=== PATIENT | female | born 1945 | race Caucasian/White ===

== ENCOUNTER → 2018-03-22 | Outpatient (CLI) | END | disposition home or self-care (01) ==

== ENCOUNTER → 2018-05-17 | Outpatient (CLI) | END | disposition home or self-care (01) ==

== ENCOUNTER → 2018-06-22 | Outpatient (CLI) | END | disposition home or self-care (01) ==

== ENCOUNTER 2019-05-31 07:30 | Inpatient (IN) | payer MEDICARE, BC ==
[2019-05-21 18:07] VITALS: BMI 23.6
[2019-05-31] VITALS (30 sets, daily range): BP systolic 93–139; BP diastolic 44–66; PULSE 68–90; RESP 15–30; Ht 160 cm; Wt 61.2 kg
[~2019-05-31] VITALS: Ht 160 cm; Wt 61.2 kg
[~2019-05-31 07:30] MED LIST: ACETAMINOPHEN 1000MG/100ML IV 100 ML IVPB ONE; CLINDAMYCIN 600 MG/D5W (PMX) 50 ML IVPB SCH; DEXAMETHASONE 4 MG/ML 1 ML INJ IV ONE; LACTATED RINGER'S 1,000 ML IV ONE; TRANEXAMIC ACID 1GM/100ML(PMX) 100 ML AT CLOSURE X1 IVPB ONE; TRANEXAMIC ACID 1GM/100ML(PMX) 100 ML AT INCISION X1 IVPB ONE
[2019-05-31] MEDS ORDERED: METF500T24 PO (09:25)
[2019-05-31] MEDS ORDERED: TELM1TAB PO (09:26)
[2019-05-31] MEDS ORDERED: CALC1TAB79 PO (09:28)
[2019-05-31] MEDS ORDERED: CRAN450T7 PO (09:28)
[2019-05-31] MEDS ORDERED: OMEG-135 PO (09:29)
[2019-05-31] MEDS ORDERED: [UNRECOGNIZED DRUG - CODE] PO (09:29)
[2019-05-31] MEDS ORDERED: B CO1TAB14 PO (09:30)
[2019-05-31] MEDS ORDERED: UBID100C24 PO (09:30)
[2019-05-31] MEDS ORDERED: TURM500C9 PO (09:31)
--- NOTE | 2019-05-31 09:43 | HPN ---
Date/Time of Note Date/Time of Note DATE: 05/31/19 TIME: 09:42 Interval H&P Admission Note Pt. seen H&P reviewed: No system changes LALIT LINDSEY May 31, 2019 09:43
--- NOTE | 2019-05-31 09:46 | PREAC ---
Date/Time of Note Date/Time of Note DATE: 05/31/19 TIME: 09:44 Anesthesia Eval and Record Evaluation Time Pre-Procedure Interview DATE: 05/31/19 TIME: 09:44 Age 73 Sex female NPO: 8 hrs Preoperative diagnosis Bilateral Knees OA Planned procedure Bilateral Total Knees Arthroplasties Past Medical History Past Medical History: Includes Cardio: HTN Endo: Diabetes, Other (ovarian cyst) Musculoskeletal: Osteoarthritis Infection(s): Hep C Surgery & Anesthesia Issues No known issue Meds Anticoagulation: No Beta Forrest within 24 hr: No Reason Beta Forrest not given: Pt. not on B-Forrest Reported Medications Turmeric Root Extract (Turmeric) 500 Mg Capsule, 1000 MG PO DAILY, CAP 05/31/19 B Complex with Vitamin C (Super B Complex-Vitamin C) 1 Each Tablet, 1 EACH PO DAILY, TAB 05/31/19 Ubidecarenone (Coq-10) 100 Mg Capsule, 100 MG PO DAILY, CAP 05/31/19 Lovely-3 Fatty Acids/Fish Oil (Fish Oil 1,000 mg Capsule) 1 Each Capsule, 1 EACH PO DAILY, CAP 05/31/19 Multivits Min/Iron/Fa/Herb#186 (HAIR, SKIN & NAILS CAPLET) 1 Each Tablet, 1 EACH PO BID, TAB 05/31/19 Calcium Carbonate/Vitamin D3 ([place] 500+D Tablet) 1 Each Tablet, 1 EACH PO BID, TAB 05/31/19 Cranberry Fruit (CRANBERRY) 450 Mg Tablet, 650 MG PO DAILY, TAB 05/31/19 Telmisartan-Amlodipine (Telmisartan-Amlodipine) 40-5 Mg Tablet, 1 TAB PO DAILY, TAB 05/31/19 Metformin Hcl* (Metformin Hcl*) 500 Mg Tablet, 500 MG PO WITH BREAKFAST DINNE, #60 TAB 05/31/19 Current Medications Lactated Ringer's 1,000 ml @ 125 mls/hr Q8H ONCE IV ; Start 05/31/19 at 07:30; Stop 05/31/19 at 15:29 Clindamycin HCl/ Dextrose 50 ml @ 100 mls/hr PRE-OP IVPB ; Start 05/31/19 at 06:00; Stop 05/31/19 at 12:00 Meds reviewed: Yes Allergies Coded Allergies: Penicillins (Verified Allergy, Severe, ANAPHYLACTIC SHOCK, 05/21/19) Sulfa (Sulfonamide Antibiotics) (Verified Allergy, Severe, HIVES, 05/21/19) belladonna alkaloids (Verified Allergy, Severe, 05/31/19) sulfamethoxazole (Verified Allergy, Severe, HIVES, 05/21/19) tetracycline (Verified Allergy, Severe, REDNESS ALL OVER, 05/21/19) trimethoprim (Verified Allergy, Severe, HIVES, 05/21/19) ampicillin (Verified Allergy, Unknown, 05/31/19) dextromethorphan (Verified Allergy, Unknown, 05/31/19) guaifenesin (Verified Allergy, Unknown, 05/31/19) moxifloxacin (Verified Allergy, Unknown, 05/31/19) Allergies Reviewed: Yes Labs/Studies Labs Reviewed: Reviewed by anesthesiologist test: N/A Studies: ECG (n/a), CXR (n/a) Pre-procedure Exam Last vitals Vital Signs Date Temp Pulse Resp B/P (MAP) Pulse Ox O2 O2 Flow FiO2 Time Delivery Rate 05/31/19 98.2 79 16 139/66 98 Room Air 09:36 (90) Airway: Adequate mouth opening, Adequate thyromental dist Mallampati: Mallampati II Teeth: Normal Lung: Normal Heart: Normal ASA Physical Status ASA physical status: 3 Emergency: None Planned Anesthetic General/MAC: ETT, LMA Neuraxial: Spinal Nerve block: Femoral (bilateral) Planned Pain Management Sub-arachniod narcotics, Single shot nerve block, Parenteral pain med Pre-operative Attestations Prior to commencing anesthesia and surgery, the patient was re-evaluated, there was verification of: *The patient's identity *The results of appropriate recent lab work and preoperative vital signs *The above evaluation not changing prior to induction *Anesthetic plan, risk benefits, alternative and complications discussed with patient/family; questions answered; patient/family understands, accepts and wishes to proceed. ROCKY FINCH MD May 31, 2019 09:46
--- NOTE | 2019-05-31 10:23 | PAC ---
Date/Time of Note Date/Time of Note DATE: 05/31/19 TIME: 10:23 Post-Anesthesia Notes Post-Anesthesia Note Last documented vital signs Vital Signs Date Temp Pulse Resp B/P (MAP) Pulse Ox O2 O2 Flow FiO2 Time Delivery Rate 05/31/19 98.2 79 16 139/66 98 Room Air 10:26 (90) Activity: WNL Respiratory function: WNL Cardiovascular function: WNL Mental status: Baseline Pain reasonably controlled: Yes Hydration appropriate: Yes Nausea/Vomiting absent: Yes ROCKY FINCH MD May 31, 2019 10:23
[2019-05-31] MEDS ORDERED: PROPOFOL 100 ML ONE (11:49)
[2019-05-31] MEDS ORDERED: FENTAnyl 50 MCG/ML VIAL ONE (11:49)
[2019-05-31] MEDS ORDERED: ROPIVACAINE 0.5 % 30 ML VIAL ONE (11:49)
[2019-05-31] MEDS ORDERED: MIDAZOLAM 1 MG/ML 2 ML INJ ONE (11:49)
[2019-05-31] MEDS ORDERED: HETASTARCH 6% NACL 500 ML ONE (13:10)
[2019-05-31] MEDS ORDERED: KETOROLAC 30 MG INJ ONE (13:22)
[2019-05-31] MEDS ORDERED: ONDANSETRON 4 MG INJ ONE (13:22)
[2019-05-31] MEDS ORDERED: DEXAMETHASONE 4 MG/ML 5 ML INJ ONE (13:22)
[2019-05-31] MEDS ORDERED: METOCLOPRAMIDE 10 MG INJ ONE (13:22)
[2019-05-31] MEDS ORDERED: POLYMYXIN B 500000 UNIT INJ IRR ONE (13:27)
[2019-05-31] MEDS ORDERED: BACITRACIN 50000 UNITS INJ IRR ONE (13:27)
[2019-05-31] MEDS ORDERED: morphine 2 MG INJ IV PRN ×2 (14:00)
[2019-05-31] MEDS ORDERED: NALOXONE (0.4 MG/ML) INJ IV PRN ×2 (14:00→15:30)
[2019-05-31] MEDS ORDERED: HYDROCODONE/APAP (5/325) TAB PO PRN (14:00)
[2019-05-31] MEDS ORDERED: HYDROmorphONE 0.5 MG/0.5 ML SYG IV PRN ×2 (14:00)
[2019-05-31] MEDS ORDERED: MEPERIDINE 25 MG INJ IV PRN (14:00)
[2019-05-31] MEDS ORDERED: LABETALOL HCL 20MG INJ IV PRN (14:00)
[2019-05-31] MEDS ORDERED: ACETAMINOPHEN 500 MG TAB PO PRN (14:00)
[2019-05-31] MEDS ORDERED: ONDANSETRON 4 MG INJ IV PRN ×2 (14:00)
[2019-05-31] MEDS ORDERED: HYDROmorphONE 1 MG/5 ML IV SYRINGE IV PRN ×3 (14:00)
[2019-05-31] MEDS ORDERED: FENTAnyl 50 MCG/ML VIAL IV PRN ×3 (14:00)
[2019-05-31] MEDS ORDERED: DIPHENHYDRAMINE 50 MG INJ IV PRN ×2 (14:00)
[2019-05-31] MEDS ORDERED: OXYCODONE/ACETAMINOPHEN (5/325) TAB PO PRN (14:00)
[2019-05-31] MEDS ORDERED: METOCLOPRAMIDE 10 MG INJ IV PRN (14:00)
[2019-05-31] MEDS ORDERED: KETOROLAC 15 MG INJ IV PRN ×2 (14:00→15:30)
[2019-05-31] MEDS ORDERED: EPHEDrine 25 MG/5 ML SYG IV PRN (14:00)
[2019-05-31] MEDS ORDERED: NALBUPHINE HCL (10 MG/1 ML) INJ IV PRN (14:00)
[2019-05-31] MEDS ORDERED: hydrALAzine 20 MG INJ IV PRN (14:00)
[2019-05-31] MEDS ORDERED: TRANEXAMIC ACID 1 GM/100 ML ONE (14:02)
[2019-05-31] MEDS ORDERED: POLYMYXIN B 500000 UNIT INJ ONE (14:53)
[2019-05-31] MEDS ORDERED: BACITRACIN 50000 UNITS INJ ONE (14:54)
--- NOTE | 2019-05-31 15:01 | SIPON ---
Date/Time of Note Date/Time of Note DATE: 05/31/19 TIME: 15:00 Operative Report Preoperative Diagnosis Bilateral knee osteoarthritis Postoperative Diagnosis Same Operation/Procedure Performed Bilateral total knee replacement Surgeon see signature line web press operator assistant MARTELL Lagunas Anesthesia: spinal Estimated blood loss: 250 - 300 ml's Transfusion Required none Specimen Bone Grafts/Implants Right knee, size 5 femur, size 3 tibia, 6 mm polyethylene and 32 patella. Left side, size 4 femur, size 3 tibia and 6 mm polyethylene, 32 patella Complications none LALIT LINDSEY May 31, 2019 15:01
[2019-05-31] MEDS ORDERED: EPHEDrine 25 MG/5 ML SYG ONE (15:04)
[2019-05-31] MEDS ORDERED: PHENYLephrine (100 MCG/ML) 10ML SYG ONE (15:04)
[2019-05-31] MEDS: LACTATED RINGER'S 1,000 ML IV SCH (15:05)
--- NOTE | 2019-05-31 15:05 | OPR ---
Date/Time of Note Date/Time of Note DATE: 05/31/19 TIME: 15:01 Operative Report Procedure Date: May 31, 2019 Preoperative Diagnosis Bilateral knee osteoarthritis Postoperative Diagnosis Same Operation/Procedure Performed Bilateral total knee replacement Surgeon see signature line Dry Cell Sealer MARTELL Lagunas Anesthesia Type: spinal Estimated Blood Loss: 250 - 300 ml's Transfusion none Specimen Bone Grafts/Implants Anay knees, size 5 femur, size 3 tibia, 6 mm polyethylene and 32 patella on the right. Size 4 femur, size 3 tibia, 6 mm polyethylene and 32 patella on the left Tubes/Drains None Complications none Pt Condition Post Procedure: stable Disposition: PACU Indications The patient is a 73-year-old female with bilateral osteoarthritis of her knees Procedure Description Patient was placed supine on the operating room table. Both knees were prepped and draped in usual manner, preoperative antibiotics were administered. The right knee was addressed first. There was a valgus deformity. An anterior incision was made. A mid vastus approach was used. The patella was displaced laterally without everting it. Medial and lateral collateral ligaments were protected. The distal femoral cut was made in 5 degrees of valgus. The tibia was prepared using external alignment. The femoral cuts were made for a posterior stabilized femoral component. A notch was cut in the distal femur to accommodate the component. PCL was sacrificed, remnants of the menisci were removed. Anterior posterior and chamfer cuts were made. Trials were inserted including a 5 femur, 3 tibia, 32 patella and 6 mm of polyethylene. This resulted in a stable knee from 0 to 130 degrees. Final components were cemented in place and the knee injected with pain cocktail. The knee had full range of motion with good balance and tracking. The wound was closed in layers using #1 strata fix for deep fascia, 2-0 Vicryl for subcutaneous tissue and 3-0 Monocryl for the skin. The knee was injected with pain cocktail. The left knee was then addressed. Once again valgus deformity was recognized. An anterior incision was used. A mid vastus approach was made in the patella displaced laterally without everting it. The femur was prepared for a size 4 component and the tibia for a size 3 component. 6 mm of polyethylene resulted in full range of motion with good stability and balance. Final x-rays were satisfactory. Final components were cemented in place. Excess cement was removed. The knee was injected with pain cocktail and closed in layers using #1 strata fix for deep fascia, 2-0 Vicryl for subcutaneous tissue and 3-0 Monocryl for the skin. Patient was transferred to the recovery room in stable condition LALIT LINDSEY May 31, 2019 15:05
[2019-05-31] MEDS ORDERED: PROPOFOL 20 ML ONE (15:10)
[2019-05-31] MEDS ORDERED: MAGNESIUM HYDROXIDE 30ML CUP PO PRN (15:30)
[2019-05-31] MEDS ORDERED: NACL 0.9% 3 ML SYG IV SCH (15:30)
[2019-05-31] MEDS ORDERED: oxyCODONE 5 MG TAB PO PRN ×2 (15:30)
[2019-05-31] MEDS: CLINDAMYCIN 900 MG/D5W (PMX) 50 ML IVPB SCH ×2 (15:30→23:33)
[2019-05-31] MEDS ORDERED: GLUCOSE GEL 15 GRAM TUBE PO PRN ×2 (19:00)
[2019-05-31] MEDS ORDERED: GLUCAGON 1 MG INJ IM PRN (19:00)
[2019-05-31] MEDS ORDERED: GLUCOSE GEL 15 GRAM TUBE BUCCAL PRN (19:00)
[2019-05-31] MEDS ORDERED: DEXTROSE 50% 50 ML SYRINGE IV PRN ×2 (19:00)
[2019-05-31] MEDS: INSULIN ASPART [NOVOLOG] 3 ML PEN SC SCH (20:49)
[2019-05-31] MEDS ORDERED: GABAPENTIN 100 MG CAP PO SCH (21:00)
--- NOTE | 2019-05-31 21:10 | HP ---
Date/Time of Note Date/Time of Note DATE: 05/31/19 TIME: 20:58 Assessment/Plan VTE Prophylaxis Risk score (from Ns)>0 risk: 7 SCD applied (from [facility] [place]): Yes Pharmacological prophylaxis: NA/contraindicated Pharm contraindication: surgical contra Lines/Catheters IV Catheter Type (from Nrsg): Peripheral IV Urinary Cath still in place: Yes Reason Cath still needed: urinary retention Assessment/Plan Assessment/Plan -Bilateral knee osteoarthritis. S/p Bilateral total knee replacement. Continue IV fluids and postoperative antibiotic. Continue management, physical therapy follow-up orthopedic surgery recommendations. Patient has multiple allergies does not want to take any [place], morphine, or gabapentin for pain. Continue Tylenol and ibuprofen as needed for pain. Patient wants to take her homeopathic medication for pain and inflammation. -Hypertension, continue Norvasc and telmisartan. -Diabetes, continue metformin. Further recommendations based on clinical course. Plan of care discussed with Dr. Gupta. Results 24hrs Laboratory Tests Test 05/31/19 10:13 05/31/19 15:40 05/31/19 20:48 Bedside Glucose 119 162 187 HPI/ROS Admit Date/Time Admit Date/Time May 31, 2019 at 08:12 Hx of Present Illness The patient is 73-year-old female with hypertension, diabetes, arthritis. Patient failed conservative management for bilateral knee osteoarthritis and was evaluated by Dr. Muniz and orthopedic surgery consultation. Patient was brought to the hospital and underwent bilateral knee replacement. Patient is noted to be slightly hypotensive, howeve,r denies any chest pain denies shortness of breath, denies any nausea and vomiting. Patient is being admitted for further evaluation and management to medical surgical floor. ROS 12 point review of system is negative except for what mentioned in HPI PMH/Family/Social Past Medical History Medical History: diabetes, hypertension, other (Osteoarthritis) Medications Current Medications Hydromorphone HCl (Dilaudid) 0.2 mg Q2H PRN IV .PAIN 1-5; Start 05/31/19 at 14:00; Stop 06/01/19 at 14:07 Hydromorphone HCl (Dilaudid) 0.4 mg Q2H PRN IV .PAIN 6-10; Start 05/31/19 at 14:00; Stop 06/01/19 at 14:07 Morphine Sulfate (morphine) 2 mg Q2H PRN IV .PAIN 1-5; Start 05/31/19 at 14:00; Stop 06/01/19 at 14:07 Morphine Sulfate (morphine) 4 mg Q2H PRN IV .PAIN 6-10; Start 05/31/19 at 14:00; Stop 06/01/19 at 14:07 Ketorolac Tromethamine (Toradol) 15 mg Q6H PRN IV .PAIN 6-10; Start 05/31/19 at 14:00; Stop 06/01/19 at 14:07 Acetaminophen (Tylenol Tab) 500 mg Q4H PRN PO .PAIN 1-3; Start 05/31/19 at 14:00; Stop 06/01/19 at 14:07 Acetaminophen/ Hydrocodone Bitart ([place] (5/325)) 1 tab Q4H PRN PO .PAIN 4-6; Start 05/31/19 at 14:00; Stop 06/01/19 at 14:07 Diphenhydramine HCl (Benadryl) 25 mg Q4H PRN IV .PRURITUS; Start 05/31/19 at 14:00; Stop 06/01/19 at 14:07 Nalbuphine HCl (Nubain) 10 mg Q4H PRN IV .PRURITUS; Start 05/31/19 at 14:00; Stop 06/01/19 at 14:07 Ondansetron HCl (Zofran Inj) 4 mg Q6H PRN IV .NAUSEA/VOMITING; Start 05/31/19 at 14:00; Stop 06/01/19 at 14:07 Naloxone HCl (Narcan) 0.2 mg Q2M PRN IV .RESP RATE; Start 05/31/19 at 14:00; Stop 06/01/19 at 14:07 Miscellaneous Information (* Miscellaneous Pharmacy Order) FENTANYL: 20 ... GIVE N NEURAXIAL XX ; Start 05/31/19 at 14:00 Metoclopramide HCl (Reglan) 10 mg PACU ORDER PRN IV NAUSEA/VOMITING; Start 05/31/19 at 14:00 Lactated Ringer's 1,000 ml @ 80 mls/hr [id number] IV ; Start 05/31/19 at 15:05 IV Flush (NS 3 ml) 3 ml PER PROTOCOL IV ; Start 05/31/19 at 15:30 Oxycodone HCl (Roxicodone) 10 mg Q4H PRN PO .PAIN; Start 05/31/19 at 15:30 Oxycodone HCl (Roxicodone) 5 mg Q4H PRN PO .PAIN; Start 05/31/19 at 15:30 Acetaminophen (Tylenol Tab) 1,000 mg Q8 PO ; Start 05/31/19 at 22:00 Ketorolac Tromethamine (Toradol) 15 mg Q6H PRN IV .PAIN; Start 05/31/19 at 15:30 Ondansetron HCl (Zofran Inj) 4 mg Q4H PRN IV NAUSEA/VOMITING; Start 06/01/19 at 15:30 Clindamycin HCl/ Dextrose 50 ml @ 50 mls/hr Q8H IVPB ; Start 05/31/19 at 15:30; Stop 06/01/19 at 08:29 Gabapentin (Neurontin) 100 mg TID PO ; Start 05/31/19 at 21:00 Pantoprazole (Protonix Tab) 40 mg DAILY@06 PO ; Start 06/02/19 at 06:00 Docusate Sodium (Colace) 200 mg BID PO ; Start 06/01/19 at 09:00; Stop 06/04/19 at 08:59 Magnesium Hydroxide (Milk Of Mag) 30 ml HS PRN PO .CONSTIPATION; Start 05/31/19 at 15:30 Naloxone HCl (Narcan) 0.2 mg Q2M PRN IV .RESP RATE; Start 05/31/19 at 15:30 Aspirin (Halfprin) 81 mg BID PO ; Start 06/01/19 at 09:00 Insulin Aspart (Novolog Insulin Pen) NOVOLOG *MILD* ALGORITHM WITH MEALS BEDTIME SC ; Start 05/31/19 at 21:00 Miscellaneous Information 1 ea NOTE XX ; Start 05/31/19 at 19:00 Glucose (Glutose) 15 gm Q15M PRN PO DECREASED GLUCOSE; Start 05/31/19 at 19:00 Glucose (Glutose) 22.5 gm Q15M PRN PO DECREASED GLUCOSE; Start 05/31/19 at 19:00 Dextrose (D50w Syringe) 25 ml Q15M PRN IV DECREASED GLUCOSE; Start 05/31/19 at 19:00 Dextrose (D50w Syringe) 50 ml Q15M PRN IV DECREASED GLUCOSE; Start 05/31/19 at 19:00 Glucagon (Glucagen) 1 mg Q15M PRN IM DECREASED GLUCOSE; Start 05/31/19 at 19:00 Glucose (Glutose) 15 gm Q15M PRN BUCCAL DECREASED GLUCOSE; Start 05/31/19 at 19:00 Coded Allergies: Penicillins (Verified Allergy, Severe, ANAPHYLACTIC SHOCK, 05/21/19) Sulfa (Sulfonamide Antibiotics) (Verified Allergy, Severe, HIVES, 05/21/19) belladonna alkaloids (Verified Allergy, Severe, 05/31/19) sulfamethoxazole (Verified Allergy, Severe, HIVES, 05/21/19) tetracycline (Verified Allergy, Severe, REDNESS ALL OVER, 05/21/19) trimethoprim (Verified Allergy, Severe, HIVES, 05/21/19) ampicillin (Verified Allergy, Unknown, 05/31/19) dextromethorphan (Verified Allergy, Unknown, 05/31/19) guaifenesin (Verified Allergy, Unknown, 05/31/19) moxifloxacin (Verified Allergy, Unknown, 05/31/19) Past Surgical History Past Surgical Hx: other (Status post ORIF of right humerus for fracture, status post rotator cuff repair, status post ovarian cyst removal many years ago, status post tonsillectomy many years ago) Family History Significant Family History: no pertinent family hx Social History Alcohol Use: occasionally Smoking Status: Never smoker Drug Use: none Exam/Review of Systems Vital Signs Vitals Vital Signs Date Temp Pulse Resp B/P (MAP) Pulse Ox O2 O2 Flow FiO2 Time Delivery Rate 05/31/19 97.7 84 20 103/57 94 Room Air 19:10 (72) Exam Constitutional: alert, oriented Head: normocephalic Neck: supple Respiratory: clear to auscultation Cardiovascular: nl pulses Gastrointestinal: soft, non-tender Musculoskeletal: nl extremities to inspection Extremities: other (Status post bilateral knee replacement) Neurological: nl mental status Skin: nl WILEY Alvardao May 31, 2019 21:09
[2019-05-31] MEDS: ACETAMINOPHEN 500 MG TAB PO SCH ×2 (21:21→22:25)
[2019-06-01] MEDS: LACTATED RINGER'S 1,000 ML IV SCH ×2 (01:25→16:05)
[2019-06-01 04:00] VITALS: BP 97/49; PULSE 51; RESP 20
[2019-06-01] MEDS: CLINDAMYCIN 900 MG/D5W (PMX) 50 ML IVPB SCH (06:47)
[2019-06-01] MEDS: INSULIN ASPART [NOVOLOG] 3 ML PEN SC SCH ×4 (07:50→21:00)
--- NOTE | 2019-06-01 08:03 | PN ---
Date/Time of Note Date/Time of Note DATE: 06/01/19 TIME: 08:02 Assessment/Plan VTE Prophylaxis Risk score (from Ns)>0 risk: 7 SCD applied (from Ns): Yes SCD contraindicated: other Pharmacological prophylaxis: other Pharm contraindication: other Lines/Catheters IV Catheter Type (from Nrsg): Peripheral IV Urinary Cath still in place: Yes Reason Cath still needed: urinary retention Assessment/Plan Assessment/Plan -Bilateral knee osteoarthritis. S/p Bilateral total knee replacement. Continue IV fluids and postoperative antibiotic. Continue management, physical therapy follow-up orthopedic surgery recommendations. Patient has multiple allergies does not want to take any [place], morphine, or gabapentin for pain. Continue Tylenol and ibuprofen as needed for pain. Patient wants to take her homeopathic medication for pain and inflammation. -Hypertension, continue Norvasc and telmisartan. -Diabetes, continue metformin. Further recommendations based on clinical course. Plan of care discussed with Dr. Gupta. Result Diagram: 06/01/19 0456 06/01/19 0456 Results 24hrs Laboratory Tests Test 05/31/19 10:13 05/31/19 15:40 05/31/19 20:48 06/01/19 04:56 Bedside Glucose 119 162 187 White Blood Count 11.8 H Red Blood Count 3.28 L Hemoglobin 9.4 L Hematocrit 28.8 L Mean Corpuscular 87.8 Volume Mean Corpuscular 28.7 L Hemoglobin Mean Corpuscular 32.6 Hemoglobin Concent Red Cell 14.9 H Distribution Width Platelet Count 208 Mean Platelet Volume 11.5 H Immature 0.500 H Granulocytes % Neutrophils % 87.6 H Lymphocytes % 7.0 L Monocytes % 4.8 Eosinophils % 0.0 Basophils % 0.1 Nucleated Red Blood 0.0 Cells % Immature 0.060 H Granulocytes # Neutrophils # 10.3 H Lymphocytes # 0.8 Monocytes # 0.6 Eosinophils # 0.0 Basophils # 0.0 Nucleated Red Blood 0.0 Cells # Sodium Level 140 Potassium Level 5.0 Chloride Level 110 Carbon Dioxide Level 26 Anion Gap 4 L Blood Urea Nitrogen 19 Creatinine 0.84 Est Glomerular Filtrat Rate mL/min Glucose Level 160 Calcium Level 8.7 Subjective 24 Hr Interval Summary Free Text/Dictation no new events last night Eyes: no complaints ENT: no complaints Respiratory: no complaints Cardiovascular: no complaints Gastrointestinal: no complaints Genitourinary: no complaints Musculoskeletal: bone/joint pain, restricted range of motion Skin: no complaints Neurologic: no complaints Endocrine: no complaints Lymphatic: no complaints Psychological: nl mood/affect Immunologic: no complaints Exam/Review of Systems Exam Vitals Vital Signs Date Temp Pulse Resp B/P (MAP) Pulse Ox O2 O2 Flow FiO2 Time Delivery Rate 06/01/19 98.1 51 20 97/49 (65) 96 04:00 05/31/19 Room Air 2.0 23:36 Intake and Output 05/31/19 05/31/19 06/01/19 1515:00 23:00 07:00 IntakeIntake Total 3700 ml 240 ml 1590 ml OutputOutput Total 3000 ml 600 ml BalanceBalance 3700 ml -2760 ml 990 ml Constitutional: alert, oriented, well developed Psych: nl mood/affect Head: normocephalic Eyes: nl lids, nl sclera ENMT: nl external ears & nose Neck: non-tender Respiratory: clear to auscultation Cardiovascular: nl pulses, other (s1s2) Gastrointestinal: soft, non-tender Musculoskeletal: joint tenderness, range of motion Extremities: normal pulses Neurological: nl mental status, nl speech Skin: nl turgor Lymph: nontender Results Results 24hrs Laboratory Tests Test 05/31/19 10:13 05/31/19 15:40 05/31/19 20:48 06/01/19 04:56 Bedside Glucose 119 162 187 White Blood Count 11.8 H Red Blood Count 3.28 L Hemoglobin 9.4 L Hematocrit 28.8 L Mean Corpuscular 87.8 Volume Mean Corpuscular 28.7 L Hemoglobin Mean Corpuscular 32.6 Hemoglobin Concent Red Cell 14.9 H Distribution Width Platelet Count 208 Mean Platelet Volume 11.5 H Immature 0.500 H Granulocytes % Neutrophils % 87.6 H Lymphocytes % 7.0 L Monocytes % 4.8 Eosinophils % 0.0 Basophils % 0.1 Nucleated Red Blood 0.0 Cells % Immature 0.060 H Granulocytes # Neutrophils # 10.3 H Lymphocytes # 0.8 Monocytes # 0.6 Eosinophils # 0.0 Basophils # 0.0 Nucleated Red Blood 0.0 Cells # Sodium Level 140 Potassium Level 5.0 Chloride Level 110 Carbon Dioxide Level 26 Anion Gap 4 L Blood Urea Nitrogen 19 Creatinine 0.84 Est Glomerular Filtrat Rate mL/min Glucose Level 160 Calcium Level 8.7 Medications Medication Current Medications Hydromorphone HCl (Dilaudid) 0.2 mg Q2H PRN IV .PAIN 1-5; Start 05/31/19 at 14:00; Stop 06/01/19 at 14:07 Hydromorphone HCl (Dilaudid) 0.4 mg Q2H PRN IV .PAIN 6-10; Start 05/31/19 at 14:00; Stop 06/01/19 at 14:07 Morphine Sulfate (morphine) 2 mg Q2H PRN IV .PAIN 1-5; Start 05/31/19 at 14:00; Stop 06/01/19 at 14:07 Morphine Sulfate (morphine) 4 mg Q2H PRN IV .PAIN 6-10; Start 05/31/19 at 14:00; Stop 06/01/19 at 14:07 Ketorolac Tromethamine (Toradol) 15 mg Q6H PRN IV .PAIN 6-10; Start 05/31/19 at 14:00; Stop 06/01/19 at 14:07 Acetaminophen (Tylenol Tab) 500 mg Q4H PRN PO .PAIN 1-3; Start 05/31/19 at 14:00; Stop 06/01/19 at 14:07 Acetaminophen/ Hydrocodone Bitart ([place] (5/325)) 1 tab Q4H PRN PO .PAIN 4-6; Start 05/31/19 at 14:00; Stop 06/01/19 at 14:07 Diphenhydramine HCl (Benadryl) 25 mg Q4H PRN IV .PRURITUS; Start 05/31/19 at 14:00; Stop 06/01/19 at 14:07 Nalbuphine HCl (Nubain) 10 mg Q4H PRN IV .PRURITUS; Start 05/31/19 at 14:00; Stop 06/01/19 at 14:07 Ondansetron HCl (Zofran Inj) 4 mg Q6H PRN IV .NAUSEA/VOMITING; Start 05/31/19 at 14:00; Stop 06/01/19 at 14:07 Naloxone HCl (Narcan) 0.2 mg Q2M PRN IV .RESP RATE; Start 05/31/19 at 14:00; Stop 06/01/19 at 14:07 Miscellaneous Information (* Miscellaneous Pharmacy Order) FENTANYL: 20 ... GIVEN NEURAXIAL XX ; Start 05/31/19 at 14:00 Metoclopramide HCl (Reglan) 10 mg PACU ORDER PRN IV NAUSEA/VOMITING; Start 05/31/19 at 14:00 Lactated Ringer's 1,000 ml @ 80 mls/hr [id number] IV Last administered on 06/01/19at 01:25; Admin Dose 80 MLS/HR; Start 05/31/19 at 15:05 IV Flush (NS 3 ml) 3 ml PER PROTOCOL IV ; Start 05/31/19 at 15:30 Oxycodone HCl (Roxicodone) 10 mg Q4H PRN PO .PAIN; Start 05/31/19 at 15:30 Oxycodone HCl (Roxicodone) 5 mg Q4H PRN PO .PAIN; Start 05/31/19 at 15:30 Acetaminophen (Tylenol Tab) 1,000 mg Q8 PO Last administered on 05/31/19at 22:25; Admin Dose 1,000 MG; Start 05/31/19 at 22:00 Ketorolac Tromethamine (Toradol) 15 mg Q6H PRN IV .PAIN; Start 05/31/19 at 15:30 Ondansetron HCl (Zofran Inj) 4 mg Q4H PRN IV NAUSEA/VOMITING; Start 06/01/19 at 15:30 Clindamycin HCl/ Dextrose 50 ml @ 50 mls/hr Q8H IVPB Last administered on 06/01/19at 06:47; Admin Dose 50 MLS/HR; Start 05/31/19 at 15:30; Stop 06/01/19 at 08:29 Pantoprazole (Protonix Tab) 40 mg DAILY@06 PO ; Start 06/02/19 at 06:00 Docusate Sodium (Colace) 200 mg BID PO ; Start 06/01/19 at 09:00; Stop 06/04/19 at 08:59 Magnesium Hydroxide (Milk Of Mag) 30 ml HS PRN PO .CONSTIPATION; Start 05/31/19 at 15:30 Naloxone HCl (Narcan) 0.2 mg Q2M PRN IV .RESP RATE; Start 05/31/19 at 15:30 Aspirin (Halfprin) 81 mg BID PO ; Start 06/01/19 at 09:00 Insulin Aspart (Novolog Insulin Pen) NOVOLOG *MILD* ALGORITHM WITH MEALS BEDTIME SC ; Start 05/31/19 at 21:00 Miscellaneous Information 1 ea NOTE XX ; Start 05/31/19 at 19:00 Glucose (Glutose) 15 gm Q15M PRN PO DECREASED GLUCOSE; Start 05/31/19 at 19:00 Glucose (Glutose) 22.5 gm Q15M PRN PO DECREASED GLUCOSE; Start 05/31/19 at 19:00 Dextrose (D50w Syringe) 25 ml Q15M PRN IV DECREASED GLUCOSE; Start 05/31/19 at 19:00 Dextrose (D50w Syringe) 50 ml Q15M PRN IV DECREASED GLUCOSE; Start 05/31/19 at 19:00 Glucagon (Glucagen) 1 mg Q15M PRN IM DECREASED GLUCOSE; Start 05/31/19 at 19:00 Glucose (Glutose) 15 gm Q15M PRN BUCCAL DECREASED GLUCOSE; Start 05/31/19 at 19:00 Metformin HCl (Glucophage) 500 mg WITH BREAKFAST DINNE PO ; Start 06/01/19 at 07:50 Miscellaneous Information 1 tab DAILY PO ; Start 06/01/19 at 09:00; Status UNV Diagnostic Test (Pha) (Accu-Chek) 1 ea AC MEALS AND BEDTIME XX ; Start 06/01/19 at 07:20 Ibuprofen (Motrin) 600 mg Q6H PRN PO MILD PAIN LEVEL 1-3; Start 05/31/19 at 21:30 TIMOTHY JOYCE Jun 01, 2019 08:03
[2019-06-01 08:10] VITALS: BP 101/65; PULSE 80; RESP 18
[2019-06-01] MEDS: ACCU-CHEK XX SCH ×4 (08:15→21:00)
[2019-06-01] MEDS: DOCUSATE SODIUM 100 MG CAP PO SCH ×2 (08:18→21:00)
[2019-06-01] MEDS: ASPIRIN (EC) 81 MG TAB PO SCH ×2 (08:19→22:53)
[2019-06-01] MEDS: metFORMIN 500 MG TAB PO SCH ×2 (08:19→17:46)
[2019-06-01] MEDS ORDERED: CELECOXIB 100 MG CAP PO SCH (09:00)
[2019-06-01] MEDS ORDERED: TURMERIC ROOT EXTRACT 1000 MG PO SCH (09:00)
[2019-06-01] MEDS ORDERED: TELMISARTAN AMLODIPINE PO SCH (09:00)
[2019-06-01] MEDS: ACETAMINOPHEN 500 MG TAB PO SCH ×2 (12:42→22:34)
[2019-06-01 14:00] VITALS: BP 101/53; PULSE 72; RESP 18
[2019-06-01] MEDS ORDERED: ONDANSETRON 4 MG INJ IV PRN (15:30)
[2019-06-01] MEDS: IBUPROFEN 600 MG TAB PO PRN (18:15)
[2019-06-01 19:35] VITALS: BP 103/53; PULSE 73; RESP 20
[2019-06-02 02:40] VITALS: BP 118/56; PULSE 82; RESP 20
[2019-06-02] MEDS: LACTATED RINGER'S 1,000 ML IV SCH ×2 (04:35→16:33)
[2019-06-02] MEDS: PANTOPRAZOLE (EC) 40 MG TAB PO SCH (07:15)
[2019-06-02] MEDS: ACETAMINOPHEN 500 MG TAB PO SCH ×2 (07:15→14:00)
[2019-06-02] MEDS: INSULIN ASPART [NOVOLOG] 3 ML PEN SC SCH ×4 (07:50→20:25)
[2019-06-02 08:30] VITALS: BP 113/56; PULSE 83; RESP 16
[2019-06-02] MEDS: ACCU-CHEK XX SCH ×4 (08:30→21:00)
[2019-06-02] MEDS: ASPIRIN (EC) 81 MG TAB PO SCH ×3 (08:33→22:35)
[2019-06-02] MEDS: metFORMIN 500 MG TAB PO SCH ×2 (08:33→18:02)
[2019-06-02] MEDS: DOCUSATE SODIUM 100 MG CAP PO SCH ×2 (08:35→20:22)
[2019-06-02] MEDS ORDERED: DIPHENHYDRAMINE 25 MG CAP PO PRN (11:30)
--- NOTE | 2019-06-02 11:34 | PN ---
Date/Time of Note Date/Time of Note DATE: 06/02/19 TIME: 11:33 Assessment/Plan VTE Prophylaxis Risk score (from Ns)>0 risk: 6 SCD applied (from Ns): Yes Pharmacological prophylaxis: LMWH Lines/Catheters IV Catheter Type (from Nrsg): Saline Lock Urinary Cath still in place: No Assessment/Plan Hospital Course -Bilateral knee osteoarthritis. S/p Bilateral total knee replacement. Continue IV fluids and postoperative antibiotic. Continue management, physical therapy follow-up orthopedic surgery recommendations. Patient has multiple allergies does not want to take any [place], morphine, or gabapentin for pain. Continue Tylenol and ibuprofen as needed for pain. Patient wants to take her homeopathic medication for pain and inflammation. -Hypertension, continue Norvasc and telmisartan. -Diabetes, continue metformin. Result Diagram: 06/02/1982706/02/19827 Results 24hrs Laboratory Tests Test 06/01/19 12:40 06/02/19 06:54 06/02/19 08:28 06/02/19 08:31 Bedside Glucose 93 129 Lab Scanned Report REFERENCE LAB White Blood Count 7.9 # Red Blood Count 3.12 L Hemoglobin 8.8 L Hematocrit 27.5 L Mean Corpuscular 88.1 Volume Mean Corpuscular 28.2 L Hemoglobin Mean Corpuscular 32.0 Hemoglobin Concent Red Cell 15.1 H Distribution Width Platelet Count 186 Mean Platelet 12.6 H Volume Immature 0.400 Granulocytes % Neutrophils % 74.6 Lymphocytes % 16.3 Monocytes % 7.1 Eosinophils % 1.0 Basophils % 0.6 Nucleated Red 0.0 Blood Cells % Immature 0.030 Granulocytes # Neutrophils # 5.9 Lymphocytes # 1.3 Monocytes # 0.6 Eosinophils # 0.1 Basophils # 0.1 Nucleated Red 0.0 Blood Cells # Sodium Level 137 Potassium Level 3.9 Chloride Level 106 Carbon Dioxide 27 Level Anion Gap 4 L Blood Urea 24 H Nitrogen Creatinine 0.92 Est Glomerular Filtrat Rate mL/min Glucose Level 130 Calcium Level 8.4 Subjective 24 Hr Interval Summary Free Text/Dictation Patient complains of pain in knees but unable to take most pain medications because of reactions. Exam/Review of Systems Exam Vitals Vital Signs Date Temp Pulse Resp B/P (MAP) Pulse Ox O2 O2 Flow FiO2 Time Delivery Rate 06/02/19 98.2 83 16 113/56 94 08:30 (75) 06/02/19 Room Air 02:40 05/31/19 2.0 23:36 Intake and Output 06/01/19 06/01/19 06/02/19 1515:00 23:00 07:00 IntakeIntake Total 50 ml 480 ml 480 ml BalanceBalance 50 ml 480 ml 480 ml Constitutional: well developed Head: normocephalic, atraumatic Neck: supple Respiratory: clear to auscultation Cardiovascular: regular rate and rhythm Gastrointestinal: soft, non-tender Extremities: normal pulses Results Results 24hrs Laboratory Tests Test 06/01/19 12:40 06/02/19 06:54 06/02/19 08:28 06/02/19 08:31 Bedside Glucose 93 129 Lab Scanned Report REFERENCE LAB White Blood Count 7.9 # Red Blood Count 3.12 L Hemoglobin 8.8 L Hematocrit 27.5 L Mean Corpuscular 88.1 Volume Mean Corpuscular 28.2 L Hemoglobin Mean Corpuscular 32.0 Hemoglobin Concent Red Cell 15.1 H Distribution Width Platelet Count 186 Mean Platelet 12.6 H Volume Immature 0.400 Granulocytes % Neutrophils % 74.6 Lymphocytes % 16.3 Monocytes % 7.1 Eosinophils % 1.0 Basophils % 0.6 Nucleated Red 0.0 Blood Cells % Immature 0.030 Granulocytes # Neutrophils # 5.9 Lymphocytes # 1.3 Monocytes # 0.6 Eosinophils # 0.1 Basophils # 0.1 Nucleated Red 0.0 Blood Cells # Sodium Level 137 Potassium Level 3.9 Chloride Level 106 Carbon Dioxide 27 Level Anion Gap 4 L Blood Urea 24 H Nitrogen Creatinine 0.92 Est Glomerular Filtrat Rate mL/min Glucose Level 130 Calcium Level 8.4 Medications Medication Current Medications Miscellaneous Information (* Miscellaneous Pharmacy Order) FENTANYL: 20 ... GIVEN NEURAXIAL XX ; Start 05/31/19 at 14:00 Metoclopramide HCl (Reglan) 10 mg PACU ORDER PRN IV NAUSEA/VOMITING; Start 05/31/19 at 14:00 Lactated Ringer's 1,000 ml @ 80 mls/hr [id number] IV Last administered on 06/01/19at 01:25; Admin Dose 80 MLS/HR; Start 05/31/19 at 15:05 IV Flush (NS 3 ml) 3 ml PER PROTOCOL IV ; Start 05/31/19 at 15:30 Oxycodone HCl (Roxicodone) 10 mg Q4H PRN PO .PAIN; Start 05/31/19 at 15:30 Oxycodone HCl (Roxicodone) 5 mg Q4H PRN PO .PAIN; Start 05/31/19 at 15:30 Acetaminophen (Tylenol Tab) 1,000 mg Q8 PO Last administered on 06/02/19at 07:15; Admin Dose 1,000 MG; Start 05/31/19 at 22:00 Ketorolac Tromethamine (Toradol) 15 mg Q6H PRN IV .PAIN; Start 05/31/19 at 15:30 Ondansetron HCl (Zofran Inj) 4 mg Q4H PRN IV NAUSEA/VOMITING; Start 06/01/19 at 15:30 Pantoprazole (Protonix Tab) 40 mg DAILY@06 PO Last administered on 06/02/19at 07:15; Admin Dose 40 MG; Start 06/02/19 at 06:00 Docusate Sodium (Colace) 200 mg BID PO ; Start 06/01/19 at 09:00; Stop 06/04/19 at 08:59 Magnesium Hydroxide (Milk Of Mag) 30 ml HS PRN PO .CONSTIPATION; Start 05/31/19 at 15:30 Naloxone HCl (Narcan) 0.2 mg Q2M PRN IV .RESP RATE; Start 05/31/19 at 15:30 Aspirin (Halfprin) 81 mg BID PO Last administered on 06/02/19at 08:33; Admin Dose 81 MG; Start 06/01/19 at 09:00 Insulin Aspart (Novolog Insulin Pen) NOVOLOG *MILD* ALGORITHM WITH MEALS BEDTIME SC ; Start 05/31/19 at 21:00 Miscellaneous Information 1 ea NOTE XX ; Start 05/31/19 at 19:00 Glucose (Glutose) 15 gm Q15M PRN PO DECREASED GLUCOSE; Start 05/31/19 at 19:00 Glucose (Glutose) 22.5 gm Q15M PRN PO DECREASED GLUCOSE; Start 05/31/19 at 19:00 Dextrose (D50w Syringe) 25 ml Q15M PRN IV DECREASED GLUCOSE; Start 05/31/19 at 19:00 Dextrose (D50w Syringe) 50 ml Q15M PRN IV DECREASED GLUCOSE; Start 05/31/19 at 19:00 Glucagon (Glucagen) 1 mg Q15M PRN IM DECREASED GLUCOSE; Start 05/31/19 at 19:00 Glucose (Glutose) 15 gm Q15M PRN BUCCAL DECREASED GLUCOSE; Start 05/31/19 at 19:00 Metformin HCl (Glucophage) 500 mg WITH BREAKFAST DINNE PO Last administered on 06/02/19at 08:33; Admin Dose 500 MG; Start 06/01/19 at 07:50 Miscellaneous Information 1 tab DAILY PO ; Start 06/01/19 at 09:00; Status UNV Diagnostic Test (Pha) (Accu-Chek) 1 ea AC MEALS AND BEDTIME XX Last administered on 06/01/19at 17:45; Admin Dose 1 EA; Start 06/01/19 at 07:20 Ibuprofen (Motrin) 600 mg Q6H PRN PO MILD PAIN LEVEL 1-3 Last administered on 06/01/19at 18:15; Admin Dose 600 MG; Start 05/31/19 at 21:30 Gabapentin (Neurontin) 300 mg ONCE PO ; Start 06/02/19 at 23:00; Stop 06/03/19 a t 06:59 Diphenhydramine HCl (Benadryl) 25 mg Q6H PRN PO INSOMNIA; Start 06/02/19 at 11:30 AILYN JADE Jun 02, 2019 11:34
[2019-06-02] MEDS: IBUPROFEN 600 MG TAB PO PRN (13:03)
[2019-06-02 14:30] VITALS: BP 116/57; PULSE 77; RESP 18
--- NOTE | 2019-06-02 17:41 | PN ---
Date/Time of Note Date/Time of Note DATE: 06/02/19 TIME: 17:39 Assessment/Plan Lines/Catheters IV Catheter Type (from Nrsg): Saline Lock [place] in Place (from Nrsg): No Assessment/Plan Assessment/Plan s/p bilateral TKA, slow progress as expected. The patient is not using pain meds. d/c to SNF on Tuesday Subjective 24 Hr Interval Summary knee pain, limited mobility Feeding: advancing diet Pain Control: moderate Exam/Review of Systems Vital Signs Vitals Vital Signs Date Temp Pulse Resp B/P (MAP) Pulse Ox O2 O2 Flow FiO2 Time Delivery Rate 06/02/19 98.0 77 18 116/57 99 14:30 (76) 06/02/19 Room Air 02:40 05/31/19 2.0 23:36 Intake and Output 06/01/19 06/01/19 06/02/19 1515:00 23:00 07:00 IntakeIntake Total 50 ml 480 ml 480 ml BalanceBalance 50 ml 480 ml 480 ml Exam Free Text/Dictation knee dressings intact, no NV deficit swelling noted, ROM is limited Results Result Diagram: 06/02/19 0828 06/02/19 0828 LALIT LINDSEY Jun 02, 2019 17:41
[2019-06-02] MEDS: ACETAMINOPHEN 500 MG TAB PO PRN (18:27)
[2019-06-02 19:40] VITALS: BP 133/61; PULSE 87; RESP 18
[2019-06-02] MEDS: IBUPROFEN 600 MG TAB PO SCH (22:02)
[2019-06-02] MEDS ORDERED: GABAPENTIN 300 MG CAP PO SCH (23:00)
[2019-06-03 02:00] VITALS: BP 128/66; PULSE 80; RESP 17
[2019-06-03] MEDS: LACTATED RINGER'S 1,000 ML IV SCH (05:35)
[2019-06-03 07:25] VITALS: BP 153/69; PULSE 88; RESP 18
[2019-06-03] MEDS: PANTOPRAZOLE (EC) 40 MG TAB PO SCH (07:31)
[2019-06-03] MEDS: IBUPROFEN 600 MG TAB PO SCH ×2 (07:32→17:40)
[2019-06-03] MEDS: INSULIN ASPART [NOVOLOG] 3 ML PEN SC SCH ×4 (07:50→21:00)
[2019-06-03] MEDS: ACCU-CHEK XX SCH ×4 (08:25→21:00)
[2019-06-03] MEDS: metFORMIN 500 MG TAB PO SCH ×2 (08:47→17:39)
[2019-06-03] MEDS: ASPIRIN (EC) 81 MG TAB PO SCH ×2 (08:47→20:09)
[2019-06-03] MEDS: AMLODIPINE 5 MG TAB PO SCH (08:48)
[2019-06-03] MEDS: LOSARTAN 50 MG TAB PO SCH (08:48)
[2019-06-03] MEDS: DOCUSATE SODIUM 100 MG CAP PO SCH ×2 (08:48→20:09)
--- NOTE | 2019-06-03 11:04 | PN ---
Date/Time of Note Date/Time of Note DATE: 06/03/19 TIME: 11:03 Assessment/Plan VTE Prophylaxis Risk score (from Ns)>0 risk: 11 SCD applied (from Ns): Yes Pharmacological prophylaxis: LMWH Lines/Catheters IV Catheter Type (from Nrsg): Saline Lock Urinary Cath still in place: No Assessment/Plan Hospital Course -Bilateral knee osteoarthritis. S/p Bilateral total knee replacement. Continue IV fluids and postoperative antibiotic. Continue management, physical therapy follow-up orthopedic surgery recommendations. Patient has multiple allergies does not want to take any [place], morphine, or gabapentin for pain. Continue Tylenol and ibuprofen as needed for pain. Patient wants to take her homeopathic medication for pain and inflammation. -Hypertension, continue Norvasc and telmisartan. -Diabetes, continue metformin. Result Diagram: 06/03/1943906/03/19439 Results 24hrs Laboratory Tests Test 06/02/19 12:35 06/02/19 17:50 06/03/19 04:40 06/03/19 08:24 Bedside Glucose 131 105 110 White Blood Count 7.4 Red Blood Count 3.15 L Hemoglobin 9.0 L Hematocrit 28.2 L Mean Corpuscular 89.5 Volume Mean Corpuscular 28.6 L Hemoglobin Mean Corpuscular 31.9 L Hemoglobin Concent Red Cell 15.6 H Distribution Width Platelet Count 201 Mean Platelet Volume 12.4 H Immature 0.300 Granulocytes % Neutrophils % 57.6 Lymphocytes % 26.8 Monocytes % 10.1 Eosinophils % 4.0 Basophils % 1.2 Nucleated Red Blood 0.0 Cells % Immature 0.020 Granulocytes # Neutrophils # 4.3 Lymphocytes # 2.0 Monocytes # 0.8 Eosinophils # 0.3 Basophils # 0.1 Nucleated Red Blood 0.0 Cells # Sodium Level 138 Potassium Level 4.0 Chloride Level 108 Carbon Dioxide Level 29 Anion Gap 1 L Blood Urea Nitrogen 19 Creatinine 0.95 Est Glomerular Filtrat Rate mL/min Glucose Level 116 Calcium Level 8.7 Subjective 24 Hr Interval Summary Free Text/Dictation Gabapentin allowed the patient to sleep but caused her to feel dizzy. Patient is doing ok otherwise with pain control and ambulation Exam/Review of Systems Exam Vitals Vital Signs Date Temp Pulse Resp B/P (MAP) Pulse Ox O2 O2 Flow FiO2 Time Delivery Rate 06/03/19 98.7 88 18 153/69 97 07:25 (97) 06/03/19 Room Air 02:00 05/31/19 2.0 23:36 Intake and Output 06/02/19 06/02/19 06/03/19 1515:00 23:00 07:00 IntakeIntake Total 380 ml 680 ml 240 ml BalanceBalance 380 ml 680 ml 240 ml Constitutional: well developed Head: normocephalic, atraumatic Neck: supple Respiratory: clear to auscultation Cardiovascular: regular rate and rhythm Gastrointestinal: soft, non-tender Extremities: normal pulses Results Results 24hrs Laboratory Tests Test 06/02/19 12:35 06/02/19 17:50 06/03/19 04:40 06/03/19 08:24 Bedside Glucose 131 105 110 White Blood Count 7.4 Red Blood Count 3.15 L Hemoglobin 9.0 L Hematocrit 28.2 L Mean Corpuscular 89.5 Volume Mean Corpuscular 28.6 L Hemoglobin Mean Corpuscular 31.9 L Hemoglobin Concent Red Cell 15.6 H Distribution Width Platelet Count 201 Mean Platelet Volume 12.4 H Immature 0.300 Granulocytes % Neutrophils % 57.6 Lymphocytes % 26.8 Monocytes % 10.1 Eosinophils % 4.0 Basophils % 1.2 Nucleated Red Blood 0.0 Cells % Immature 0.020 Granulocytes # Neutrophils # 4.3 Lymphocytes # 2.0 Monocytes # 0.8 Eosinophils # 0.3 Basophils # 0.1 Nucleated Red Blood 0.0 Cells # Sodium Level 138 Potassium Level 4.0 Chloride Level 108 Carbon Dioxide Level 29 Anion Gap 1 L Blood Urea Nitrogen 19 Creatinine 0.95 Est Glomerular Filtrat Rate mL/min Glucose Level 116 Calcium Level 8.7 Medications Medication Current Medications Miscellaneous Information (* Miscellaneous Pharmacy Order) FENTANYL: 20 ... GIVEN NEURAXIAL XX ; Start 05/31/19 at 14:00 Metoclopramide HCl (Reglan) 10 mg PACU ORDER PRN IV NAUSEA/VOMITING; Start 05/31/19 at 14:00 Lactated Ringer's 1,000 ml @ 80 mls/hr [id number] IV Last administered on 06/01/19at 01:25; Admin Dose 80 MLS/HR; Start 05/31/19 at 15:05 IV Flush (NS 3 ml) 3 ml PER PROTOCOL IV Last administered on 06/02/19at 22:35; Admin Dose 3 ML; Start 05/31/19 at 15:30 Oxycodone HCl (Roxicodone) 10 mg Q4H PRN PO .PAIN; Start 05/31/19 at 15:30 Oxycodone HCl (Roxicodone) 5 mg Q4H PRN PO .PAIN; Start 05/31/19 at 15:30 Ketorolac Tromethamine (Toradol) 15 mg Q6H PRN IV .PAIN; Start 05/31/19 at 15:30 Ondansetron HCl (Zofran Inj) 4 mg Q4H PRN IV NAUSEA/VOMITING; Start 06/01/19 at 15:30 Pantoprazole (Protonix Tab) 40 mg DAILY@06 PO Last administered on 06/03/19at 07:31; Admin Dose 40 MG; Start 06/02/19 at 06:00 Docusate Sodium (Colace) 200 mg BID PO ; Start 06/01/19 at 09:00; Stop 06/04/19 at 08:59 Magnesium Hydroxide (Milk Of Mag) 30 ml HS PRN PO .CONSTIPATION; Start 05/31/19 at 15:30 Naloxone HCl (Narcan) 0.2 mg Q2M PRN IV .RESP RATE; Start 05/31/19 at 15:30 Aspirin (Halfprin) 81 mg BID PO Last administered on 06/03/19at 08:47; Admin Dose 81 MG; Start 06/01/19 at 09:00 Insulin Aspart (Novolog Insulin Pen) NOVOLOG *MILD* ALGORITHM WITH MEALS BEDTIME SC ; Start 05/31/19 at 21:00 Miscellaneous Information 1 ea NOTE XX ; Start 05/31/19 at 19:00 Glucose (Glutose) 15 gm Q15M PRN PO DECREASED GLUCOSE; Start 05/31/19 at 19:00 Glucose (Glutose) 22.5 gm Q15M PRN PO DECREASED GLUCOSE; Start 05/31/19 at 19:00 Dextrose (D50w Syringe) 25 ml Q15M PRN IV DECREASED GLUCOSE; Start 05/31/19 at 19:00 Dextrose (D50w Syringe) 50 ml Q15M PRN IV DECREASED GLUCOSE; Start 05/31/19 at 19:00 Glucagon (Glucagen) 1 mg Q15M PRN IM DECREASED GLUCOSE; Start 05/31/19 at 19:00 Glucose (Glutose) 15 gm Q15M PRN BUCCAL DECREASED GLUCOSE; Start 05/31/19 at 19:00 Metformin HCl (Glucophage) 500 mg WITH BREAKFAST DINNE PO Last administered on 06/03/19 08:47; Admin Dose 500 MG; Start 06/01/19 at 07:50 Diagnostic Test (Pha) (Accu-Chek) 1 ea AC MEALS AND BEDTIME XX Last administered on 06/03/19 08:25; Admin Dose 1 EA; Start 06/01/19 at 07:20 Ibuprofen (Motrin) 600 mg Q6H PRN PO MILD PAIN LEVEL 1-3 Last administered on 06/02/19 13:03; Admin Dose 600 MG; Start 05/31/19 at 21:30 Diphenhydramine HCl (Benadryl) 25 mg Q6H PRN PO INSOMNIA; Start 06/02/19 at 11:30 Acetaminophen (Tylenol Tab) 1,000 mg Q8H PRN PO PAIN Last administered on 18:27; Admin Dose 1,000 MG; Start 06/02/19 at 15:30 Ibuprofen (Motrin) 600 mg Q8 PO Last administered on 06/03/19 07:32; Admin Dose 600 MG; Start 06/02/19 at 22:00 Losartan Potassium (Cozaar) 50 mg DAILY PO Last administered on 06/03/19 08:48; Admin Dose 50 MG; Start 06/03/19 at 09:00 Amlodipine Besylate (Norvasc) 5 mg DAILY PO ; Start 06/03/19 at 09:00 AILYN JADE Jun 03, 2019 11:03
[2019-06-03] MEDS: ACETAMINOPHEN 500 MG TAB PO PRN ×2 (12:06→20:09)
[2019-06-03 13:47] VITALS: BP 106/54; PULSE 68; RESP 18
[2019-06-03 19:33] VITALS: BP 139/61; PULSE 91; RESP 20
[2019-06-04] MEDS: IBUPROFEN 600 MG TAB PO SCH ×3 (00:04→12:19)
[2019-06-04 01:15] VITALS: BP 130/60; PULSE 87; RESP 18
[2019-06-04 05:10] VITALS: BP 128/64; PULSE 82; RESP 19
[2019-06-04] MEDS: INSULIN ASPART [NOVOLOG] 3 ML PEN SC SCH ×2 (07:50→11:40)
[2019-06-04 08:00] VITALS: BP 131/62; PULSE 82; RESP 19
[2019-06-04] MEDS: ACCU-CHEK XX SCH ×3 (08:20→17:25)
[2019-06-04] MEDS: ACETAMINOPHEN 500 MG TAB PO PRN ×2 (08:24→16:03)
[2019-06-04] MEDS: ASPIRIN (EC) 81 MG TAB PO SCH (08:24)
[2019-06-04] MEDS: metFORMIN 500 MG TAB PO SCH ×2 (08:24→17:25)
[2019-06-04] MEDS: PANTOPRAZOLE (EC) 40 MG TAB PO SCH (08:24)
[2019-06-04] MEDS: LOSARTAN 50 MG TAB PO SCH (08:25)
[2019-06-04] MEDS: AMLODIPINE 5 MG TAB PO SCH (08:25)
--- NOTE | 2019-06-05 00:16 | DS ---
Date/Time of Note Date/Time of Note DATE: 06/05/19 TIME: 00:13 Discharge Summary Admission/Discharge Info Admit Date/Time May 31, 2019 at 08:12 Discharge Date/Time Jun 04, 2019 at 17:40 Patient Condition: Stable Hx of Present Illness The patient is 73-year-old female with hypertension, diabetes, arthritis. Patient failed conservative management for bilateral knee osteoarthritis and was evaluated by Dr. Muniz and orthopedic surgery consultation. Patient was brought to the hospital and underwent bilateral knee replacement. Patient is noted to be slightly hypotensive, howeve,r denies any chest pain denies shortness of breath, denies any nausea and vomiting. Patient is being admitted for further evaluation and management to medical surgical floor. Hospital Course Patient discharged to [facility] for further manage ment and physical therapy. -Bilateral knee osteoarthritis. S/p Bilateral total knee replacement. Continue pain management, physical therapy follow-up orthopedic surgery recommendations. Patient has multiple allergies does not want to take any [place], morphine, or gabapentin for pain. Continue Tylenol and ibuprofen as needed for pain. Patient wants to take her homeopathic medication for pain and inflammation. Continue aspirin twice daily for DVT prophylaxis. -Hypertension, continue Norvasc and telmisartan. -Diabetes, continue metformin. Plan of care discussed with Dr. Gupta. Home Meds Reported Medications Turmeric Root Extract (Turmeric) 500 Mg Capsule, 1000 MG PO DAILY, CAP 05/31/19 B Complex with Vitamin C (Super B Complex-Vitamin C) 1 Each Tablet, 1 EACH PO DAILY, TAB 05/31/19 Ubidecarenone (Coq-10) 100 Mg Capsule, 100 MG PO DAILY, CAP 05/31/19 [place]-3 Fatty Acids/Fish Oil (Fish Oil 1,000 mg Capsule) 1 Each Capsule, 1 EACH PO DAILY, CAP 05/31/19 Multivits Min/Iron/Fa/Herb#186 (HAIR, SKIN & NAILS CAPLET) 1 Each Tablet, 1 EACH PO BID, TAB 05/31/19 Calcium Carbonate/Vitamin D3 ([place] 500+D Tablet) 1 Each Tablet, 1 EACH PO BID, TAB 05/31/19 Cranberry Fruit (CRANBERRY) 450 Mg Tablet, 650 MG PO DAILY, TAB 05/31/19 Telmisartan-Amlodipine (Telmisartan-Amlodipine) 40-5 Mg Tablet, 1 TAB PO DAILY, TAB 05/31/19 Metformin Hcl* (Metformin Hcl*) 500 Mg Tablet, 500 MG PO WITH BREAKFAST DINNE, #60 TAB 05/31/19 Follow-up Plan Follow-up with Dr. Muniz in 1 to 2 weeks. Primary Care Provider Bg Nolan MD Time spent on discharge: > 30 minutes Pending Labs Laboratory Tests Test 06/04/19 04:34 06/04/19 08:14 06/04/19 12:18 White Blood Count 8.2 10^3/ul (4.8-10.8) Red Blood Count 3.23 10^6/ul (4.20-5.40) Hemoglobin 9.3 g/dl (12.0-16.0) Hematocrit 28.5 % (37.0-47.0) Mean Corpuscular 88.2 Volume fl (82.0-101.0) Mean Corpuscular 28.8 pg (29.0-33.0) Hemoglobin Mean Corpuscular 32.6 Hemoglobin Concent g/dl (32.0-37.0) Red Cell 15.3 % (11.5-14.5) Distribution Width Platelet Count 224 10^3/UL (140-415) Mean Platelet 12.7 fl (7.4-10.4) Volume Immature 0.200 Granulocytes % % (0.001-0.429) Neutrophils % 59.8 % (39.0-77.0) Lymphocytes % 24.5 % (15.0-51.0) Monocytes % 9.3 % (0.0-11.0) Eosinophils % 5.6 % (0.0-7.0) Basophils % 0.6 % (0.0-2.0) Nucleated Red Blood 0.0 Cells % /100WBC (0.0-0.0) Immature 0.020 Granulocytes # 10^3/ul (0.0-0.031) Neutrophils # 4.9 10^3/ul (1.6-7.5) Lymphocytes # 2.0 10^3/ul (0.8-2.9) Monocytes # 0.8 10^3/ul (0.3-0.9) Eosinophils # 0.5 10^3/ul (0.0-0.5) Basophils # 0.1 10^3/ul (0.0-0.1) Nucleated Red Blood 0.0 Cells # 10^3/ul (0.0-0.0) Sodium Level 139 mmol/L (135-144) Potassium Level 4.3 mmol/L (3.5-5.1) Chloride Level 108 mmol/L (97-110) Carbon Dioxide 27 mmol/L (21-31) Level Anion Gap 4 (5-13) Blood Urea 16 mg/dl (7-20) Nitrogen Creatinine 0.95 mg/dl (0.44-1.00) Est Glomerular mL/min (>60) Filtrat Rate mL/min Glucose Level 118 mg/dl (70-220) Calcium Level 8.8 mg/dl (8.4-10.2) Bedside Glucose 102 mg/dL (70-220) 104 mg/dL (70-220) WILEY STEWART Jun 05, 2019 00:16
== END 2019-06-04 17:40 | DRG 462 ==
LOC: REC 08:12 → MS1 17:46
PROVIDERS: ADMIT Orthopaedic Surgery; ATTEND Orthopaedic Surgery
PROC: 0SRC0J9 Replacement of Right Knee Joint with Synthetic Substitute, Cemented, Open Approach (ICD-10-PCS; 2019-05-31)
PROC: 0SRD0J9 Replacement of Left Knee Joint with Synthetic Substitute, Cemented, Open Approach (ICD-10-PCS; principal; 2019-05-31 10:30)
DX: M17.0 Bilateral primary osteoarthritis of knee (principal); E11.9 Type 2 diabetes mellitus without complications; I10 Essential (primary) hypertension
CPT/HCPCS: 71045; 73560; 80048; 82962; 85025; 86850; 86900; 86901; 87081; 88304; 88311; 97110; 97116; 97162; 97165; 97530; C1776; J0131; J0171; J0735; J1100; J1815; J1885; J2250; J2370; J2405; J2765; J2795; J3010; J7120